=== PATIENT | female | born 1990 | race Hispanic/Latino ===

== ENCOUNTER 2023-05-03 06:31 | Day surgery (SDC) | payer BC ==
[~2023-05-03] VITALS: Ht 162.6 cm; Wt 169.2 kg
[2023-05-03] VITALS (11 sets, daily range): BP systolic 101–130; BP diastolic 58–77; PULSE 78–90; RESP 15–18
[~2023-05-03 06:31] MED LIST: FOLIC ACID PO; METH2.5T6 PO; NYST5ORA7 PO; PILOC5 PO; SEMA0.258 SQ
[2023-05-03] MEDS ORDERED: PROPOFOL 10 MG/ML 20ML VIAL IV ONE (08:37)
== END 2023-05-03 10:30 | disposition home or self-care (01) ==
LOC: ENDO 06:31 → DAH 06:31 → ENDO 10:30
PROVIDERS: ATTEND Internal Medicine Gastroenterology
DX: R14.0 Abdominal distension (gaseous) (principal); K29.50 Unspecified chronic gastritis without bleeding; E66.01 Morbid (severe) obesity due to excess calories; M19.90 Unspecified osteoarthritis, unspecified site; K76.0 Fatty (change of) liver, not elsewhere classified; K80.20 Calculus of gallbladder without cholecystitis without obstruction; D68.62 Lupus anticoagulant syndrome; Z68.44 Body mass index [BMI] 60.0-69.9, adult
CPT/HCPCS: 84703; 36415; 43239; J2704; A4620; A4215 ×2; A4223; A7002; A4222; A4221; A4663; J7030; A4606; J3490